=== PATIENT | female | born 1970 | race Caucasian/White ===

== ENCOUNTER → 2017-02-26 | Outpatient (CLI) | payer BC | LOC: LAB.O 09:04 | PROVIDERS: ATTEND Family Medicine | DX: E78.2 Mixed hyperlipidemia (principal) ==

== ENCOUNTER → 2017-04-28 | Outpatient (CLI) | payer BC | END | disposition home or self-care (01) | LOC: GMAM 10:48 | PROVIDERS: ATTEND Family Medicine | DX: R53.83 Other fatigue (principal); R53.81 Other malaise ==

== ENCOUNTER → 2017-06-08 | Outpatient (CLI) | payer BC | END | disposition home or self-care (01) | LOC: GMAM 17:28 | PROVIDERS: ATTEND Family Medicine | DX: R35.0 Frequency of micturition (principal) ==

== ENCOUNTER → 2017-09-10 | Outpatient (CLI) | payer BC | LOC: LAB.O 09:07 | PROVIDERS: ATTEND Family Medicine | DX: E78.2 Mixed hyperlipidemia (principal); R73.9 Hyperglycemia, unspecified ==

== ENCOUNTER → 2017-12-19 | Outpatient (CLI) | payer BC, OTHER ==
--- NOTE | 2017-12-19 12:07 | MRI ---
EXAM DESCRIPTION: Brain w/oContrast: MRI. CLINICAL HISTORY: DIZZINESS COMPARISON: None. TECHNIQUE: Multiplanar, high-field MRI unit, multiple diffusion sequences, multiple conventional sequences without contrast. FINDINGS: Small focal hyperintense FLAIR and T2-weighted signal in the periventricular white matter of the left frontal lobe at the level of the left lateral ventricle and a second lesion in the khan-white matter junction of the anterior left temporal lobe. No hemorrhage and no diffusion restriction . Normal signal in the bilateral basal ganglia. No hemorrhage, no cerebral edema, no mass-effect. Normal signal in the brainstem and cerebellar hemispheres. No hemorrhage, no cerebral edema, no mass-effect. Concordance of the diffusion and non-diffusion sequences with no diffusion restriction. Cortical sulci, ventricles, and other CSF spaces, and the subdural spaces are normally configured. No effacement or displacement. No midline shift. No extra-axial hemorrhage. Normal flow signal void in the major vessels of the the [place], and the venous sinuses. IACs are symmetric bilaterally. Minimal edema in the left mastoid air cells. Normal signal in the bilateral cerebellopontine angles. Pituitary gland occupies most of the sella. Base of the cerebellar tonsils is at the level of the foramen magnum. No abnormalities in the paranasal sinuses. Posterior left septal spur and deviation of the septum. The bony calvarium is intact. IMPRESSION: 1. 2 focal hyperintense lesions in the left frontal lobe and left temporal lobe. These can be related to early microvascular disease, demyelinating process, migraine headaches, inflammatory process, or vasculitis. Consider follow-up scan with gadolinium IV contrast to define the lesions enhance. No diffusion restriction of the lesions. 2. No intra-axial or extra-axial hemorrhage, no mass effect, cerebral edema and no midline shift. Normal MRI diffusion noncontrast study with no evidence of acute or subacute infarction. 3. Mild anatomic abnormality of the nasal septum. Chronic versus acute mild left mastoid inflammation. Electronically signed by: Kal Yo MD 12/19/2017 12:06 PM CDT
== END ==
LOC: MRI 07:53
PROVIDERS: ATTEND Physician Assistant
DX: R42 Dizziness and giddiness (principal)

== ENCOUNTER → 2017-12-30 | Outpatient (CLI) | payer OTHER ==
--- NOTE | 2017-12-30 16:19 | MRI ---
CLINICAL HISTORY: 47 years Female, [place] COMPARISON: None available. TECHNIQUE: Multiplanar multiecho imaging of the brain was performed after the administration of intravenous contrast. FINDINGS: Previously visualized FLAIR hyperintense lesions in the left frontal and temporal lobes do not demonstrate postcontrast enhancement and most likely represent changes of periventricular ischemia. No other enhancing lesions are visualized. IMPRESSION: Previously demonstrated FLAIR hyperintense lesions in the left frontal and temporal lobes demonstrate no postcontrast enhancement. Electronically signed by: Reyna Patino MD 12/30/2017 4:18 PM CDT
== END ==
LOC: MRI 07:43
PROVIDERS: ATTEND Family Medicine
DX: R42 Dizziness and giddiness (principal)

== ENCOUNTER 2019-09-21 06:00 | Day surgery (SDC) | payer BC ==
[2019-09-21] MEDS ORDERED: LACTATED RINGERS 1,000 ML ONE (07:00)
[2019-09-21] MEDS ORDERED: LIDOCAINE 1% 10 ML VIAL INJ ONE (07:00)
[2019-09-21] MEDS ORDERED: PROPOFOL 200 MG/20 ML VIAL IV ONE (07:00)
[2019-09-21] MEDS ORDERED: MIDAZOLAM INJ 2 MG/2 ML VIAL ONE (08:10)
[2019-09-21] MEDS ORDERED: KETAMINE HCL 100 MG/ML VIAL ONE (08:10)
--- NOTE | 2019-09-21 09:23 | OP ---
DATE OF PROCEDURE: 09/21/19 PREOPERATIVE DIAGNOSIS: 1. Reflux. 2. Screening colonoscopy. POSTOPERATIVE DIAGNOSIS: 1. Mild gastritis. 2. Colonic polyp, cecum. PROCEDURE: 1. EGD. 2. Colonoscopy. SURGEON: Geraldo Mckeon MD PROCEDURE IN DETAIL: After general anesthesia in the lateral position with bite block in place, the endoscope was placed without difficulty through the esophagus and into the stomach. The pylorus was intubated without difficulty and was normal with no evidence of inflammation or ulcers. There is evidence of very mild gastritis. A biopsy was taken at the antrum. Retroflexion revealed a normal body and fundus. There was no significant hiatal hernia appreciated and no evidence of reflux. Upon withdrawal, the GE junction appeared normal. The rest of the esophagus appeared normal. The patient was then placed in the lateral position. Digital rectal exam was normal. The colonoscope was then passed. There was a good prep. There was quite a spastic appearing colon with multiple turns. We did get to the cecum and identified a polyp. It was about 3 to 4 mm, bi-lobed. It was a very thin area at the very distal cecum, so it was excised with forceps rather than snare. The entire thing was removed for good sample of it, likely benign. Upon further withdrawal, we took our time because it was relatively spastic, around the hepatic flexure, it was difficult to distal ascending colon completely, but no obvious polyps were identified. The rest of the exam was normal. She was awakened and taken to Recovery. Given the size and character of the polyp in the cecum and the exam, she should likely have another scope in 3 to 5 years. #[id number] [facility]
[2019-09-21 14:22] VITALS: BP 127/82; TEMP 97.6; O2SAT 95
== END 2019-09-21 09:45 | disposition home or self-care (01) ==
LOC: AMB 06:00
PROVIDERS: ATTEND Surgery
DX: Z12.11 Encounter for screening for malignant neoplasm of colon (principal); K21.9 Gastro-esophageal reflux disease without esophagitis; D12.0 Benign neoplasm of cecum; K29.50 Unspecified chronic gastritis without bleeding; K59.00 Constipation, unspecified; F32.9 Major depressive disorder, single episode, unspecified; M79.7 Fibromyalgia; Z90.710 Acquired absence of both cervix and uterus; Z79.899 Other long term (current) drug therapy
CPT/HCPCS: 00813; 43239; 45380; J2250; J3490; J7120

== ENCOUNTER → 2020-06-19 | Outpatient (CLI) | payer BC | LOC: GMAM 16:42 | PROVIDERS: ATTEND Family Medicine | DX: Z79.899 Other long term (current) drug therapy (principal) ==